=== PATIENT | male | born 1990 | race Caucasian/White ===

== ENCOUNTER 2016-10-18 17:56 | Emergency (ER) | payer OTHER ==
--- NOTE | 2016-10-18 18:01 | EDPHY ---
H & P HPI/ROS: CHIEF COMPLAINT: HISTORY OF PRESENT ILLNESS: REVIEW OF SYSTEMS: A ten point review of systems was performed and is negative with the exception of the items mentioned in the HPI. - Medical/Surgical History Hx Asthma: Yes Hx Chronic Respiratory Disease: No Hx Diabetes: No Hx Cardiac Disease: No Hx Renal Disease: No Hx Cirrhosis: No Hx Alcoholism: No Hx HIV/AIDS: No Hx Splenectomy or Spleen Trauma: No - Social History Smoking Status: Never smoked - Physical Exam Exam: General Appearance: Alert. Vital signs reviewed. * Eyes: Pupils equal and round, no conjunctival injection, no discharge. Anicteric. ENT, Mouth: Mucous membranes are moist, no oropharyngeal erythema or edema. Neck: No lymphadenopathy, supple. Respiratory: Lungs are clear to auscultation; no wheezes, rales, or rhonchi. Cardiovascular: Regular rate and rhythm; no murmur, rub, or gallop. Gastrointestinal: Abdomen is soft and nontender, no masses or organomegaly, bowel sounds normal. Skin: Warm and dry, no rashes on exposed skin, normal color. Back: Nontender to palpation over the thoracolumbar spine. No CVAT. Extremities: No lower extremity edema, no calf tenderness or swelling. Neurological: Alert and oriented. Moving all four extremities easily and equally. Cranial nerves II through XII are examined and are intact (visual acuity not tested). Strength is 5 over 5 bilaterally with testing of all major motor groups. Sensation is intact to light touch over all 4 extremities. Deep tendon reflexes are 2+ in the biceps and knees bilaterally. Gait is normal. [id number] is performed accurately. Psychiatric: Normal affect. Allergies/Adverse Reactions: No Known Allergies Allergy (Unverified 03/31/15 19:40) Home Medications: Medication Instructions Recorded Hydrocodone/Acetaminophen 1 each PO Q4-6PRN PRN #20 tablet 03/31/15 [Hydrocodon-Acetaminophen 5-325] Ibuprofen [Motrin (*)] 800 mg PO Q6-8PRN #30 tab 03/31/15 Ondansetron Odt [Zofran Odt 4 mg 4 mg PO Q4 PRN #20 tab 03/31/15 (RX)] Departure - Departure Referrals: Pamela Guadarrama NP [Primary Care Provider] - As per Instructions Physician Review and Approval Statement: 10/18/16 18:00 Portions of this note were transcribed by the medical billing coordinator. I, Dr. Mami Gibbons, personally performed the history, physical exam, and medical decision- making; and confirmed the accuracy of the information in the transcribed note.
--- NOTE | 2016-10-18 18:19 | EDPHY ---
H & P Stated Complaint: Diarrhea/ Abd cramping - Personal History Current Tetanus/Diphtheria Vaccine: Yes Current Tetanus Diphtheria and Acellular Pertussis (TDAP): Yes - Medical/Surgical History Hx Asthma: Yes Hx Chronic Respiratory Disease: No Hx Diabetes: No Hx Cardiac Disease: No Hx Renal Disease: No Hx Cirrhosis: No Hx Alcoholism: No Hx HIV/AIDS: No Hx Splenectomy or Spleen Trauma: No - Social History Smoking Status: Never smoked Time Seen by Provider: 10/18/16 18:00 HPI/ROS: CHIEF COMPLAINT: Possible malaria HISTORY OF PRESENT ILLNESS: 26-year-old immunocompetent male with no chronic abdominal pathology, return from a 1 week trip to [facility] 3 days ago. While in [facility] he was primarily in [facility] as well as remote parts of [place] [facility]. No malarial prophylaxis while there. 3 days ago he started experiencing 6 date episodes of nonbloody non purulent diarrhea, myalgias, holocephalic headache, fever, rigor, PRIMARY CARE PROVIDER: Maria M Guadarrama REVIEW OF SYSTEMS: A ten point review of systems was performed and is negative with the exception of the items mentioned in the HPI PAST MEDICAL & SURGICAL HISTORY: No pertinent medical or surgical history , no history of hepatic disease, no malaria prophylaxis SOCIAL HISTORY: nonsmoker PHYSICAL EXAM (Prior to examination, patient consented to physical exam, hands were washed and my usual and customary physical exam procedures followed) 1) GENERAL: Well-developed, well-nourished, alert and oriented. Appears to be in no acute distress. 2) HEAD: Normocephalic, atraumatic 3) HEENT: Pupils equal, round, reactive to light bilaterally. Sclera anicteric. Nasopharynx, oropharynx, clear, no lesions. No lesions. No tonsillar enlargement or exudate. No trismus no drooling. Ears bilaterally with normal tympanic membranes. 4) NECK: Full range of motion, no meningeal signs. 5) LUNGS: Clear auscultation bilaterally, no wheezes, no rhonchi, no retractions. 6) HEART: Regular rate and rhythm, no murmur, no heave, no gallop. 7) ABDOMEN: No guarding, no rebound, no focal tenderness, negative McBurney's, negative Mccormick's, negative Rovsing's, negative peritoneal sign, I am unable to elicit abdominal pain on exam 8) MUSCULOSKELETAL: Moving all extremities, no focal areas of tenderness, no obvious trauma. No peripheral edema or discoloration. 9) BACK: No CVA tenderness,. 10) SKIN: No rash, no petechiae. 11) Psychiatric: Patient is oriented X 3, there is no agitation. DIFFERENTIAL DIAGNOSIS: in no particular include but not limited influenza, viral syndrome, malaria, dengue (Erik,Rona Tasneem) Constitutional: Initial Vital Signs Temperature (C) 36.9 C 10/18/16 18:03 Heart Rate 90 10/18/16 18:03 Respiratory Rate 14 10/18/16 18:03 Blood Pressure 134/71 H 10/18/16 18:03 O2 Sat (%) 98 10/18/16 18:03 O2 Delivery Mode Room Air Allergies/Adverse Reactions: No Known Allergies Allergy (Unverified 10/18/16 18:03) Home Medications: Medication Instructions Recorded Hydrocodone/Acetaminophen 1 each PO Q4-6PRN PRN #20 tablet 03/31/15 [Hydrocodon-Acetaminophen 5-325] Ibuprofen [Motrin (*)] 800 mg PO Q6-8PRN #30 tab 03/31/15 Ondansetron Odt [Zofran Odt 4 mg 4 mg PO Q4 PRN #20 tab 03/31/15 (RX)] Medical Decision Making ED Course/Re-evaluation: 7:20 p.m.: Re-evaluation, he is smiling, appears comfortable, currently asymptomatic. Discussed case Dr. Mami Gibbons. I reviewed the patient's laboratory studies. A malaria smear has been ordered and is currently pending. 7:34 p.m.: Phone consultation with Dr. Donald Potter infectious disease. As patient currently appears well, stable vital signs, afebrile, laboratory studies generally within normal limits and a malaria smear pending, I do not think that hospitalization is currently indicated. His abdomen remained soft no guarding or rebound. I think that acute surgical abdominal pathology such as acute appendicitis, acute cholecystitis, less than likely in this patient. We have attempted to obtain stool however he has not been able to provide stool while in the ER. He was discharged with a stool collection kit. Today is Friday. He will follow up with [facility] on Friday or Friday. In the meantime, over the weekend if he develops new or worsening symptoms needs to return to the ER immediately for re-evaluation. He feels comfortable with this plan. (Rona Valencia) This patient was evaluated and managed by the physician orthotic assistant. I have reviewed the chart and agree with the plan of care. I am the secondary supervising physician. (Mami Gibbons) - Data Points Laboratory Results: Laboratory Results 10/18/16 18:26 10/18/16 18:26 Departure - Departure Disposition: Home, Routine, Self-Care Clinical Impression: Flu-like symptoms, Possible malaria, Diarrhea Condition: Good Instructions: Gastroenteritis (ED) Additional Instructions: Return to the ER if you develop new or worsening symptoms, if you develop abdominal pain, inability keep food or fluid down, or any other symptoms that concern you. Referrals: Donald Potter MD [Medical Doctor] - 10/21/16 (Dr. Donald Potter and his colleagues are infectious disease specialist.)
[2016-10-18 18:44] LABS: % IMMATURE GRANULYOCYTES 0.4 % (0.0-1.1); ABSOLUTE IMMATURE GRANULOCYTES 0.04 10^3/uL (0.00-0.10); ADD DIFF? NO; ADD MORPH? NO; ADD SCAN? NO; ATYPICAL LYMPHOCYTE FLAG 60 (0-99); FRAGMENT RBC FLAG 0 (0-99); HEMATOCRIT 42.6 % (40.0-51.0); LEFT SHIFT FLG 10 (0-99); LIPEMIA HEMOLYSIS FLAG 90 (0-99); MEAN CELL HEMOGLOBIN 31.4 pg (27.9-34.1); MEAN CELL HEMOGLOBIN CONCENTR. 35.2 g/dL (32.4-36.7); MEAN CELL VOLUME 89.1 fL (81.5-99.8); MEAN PLATELET VOLUME 10.5 fL (8.7-11.7); PLATELET CLUMPS FLAG 0 (0-99); PLATELET COUNT 174 10^3/uL (150-400); RED BLOOD CELL COUNT 4.78 10^6/uL (4.40-6.38); RED CELL DISTRIBUTION WIDTH 11.6 % (11.5-15.2)
[2016-10-18 18:54] LABS: INR 1.14 (0.83-1.16); PROTIME(PATIENT) 14.5 SEC (12.0-15.0)
[2016-10-18 18:55] LABS: APTT 26.9 SEC (23.0-38.0)
[2016-10-18 19:07] LABS: ALANINE AMINOTRANSFERASE 28 IU/L (21-72); ALBUMIN 4.1 g/dL (3.5-5.0); ALKALINE PHOSPHATASE 59 IU/L (38-126); ANION GAP 12 mEq/L (8-16); ASPARTATE AMINOTRANSFERASE 19 IU/L (17-59); BILIRUBIN,TOTAL 0.8 mg/dL (0.1-1.4); BILIRUBIN-CONJUGATED 0.2 mg/dL (0.0-0.5); BILIRUBIN-UNCONJUGATED 0.6 mg/dL (0.0-1.1); CALCIUM 8.8 mg/dL (8.5-10.4); CARBON DIOXIDE 25 mEq/l (22-31); CHLORIDE 104 mEq/L (97-110); CREATININE 0.8 mg/dL (0.7-1.3); GLOMERULAR FILTRATION RATE > 60; GLUCOSE 88 mg/dL (70-100); POTASSIUM 3.7 mEq/L (3.5-5.2); SODIUM 141 mEq/L (134-144); TOTAL PROTEIN 6.5 g/dL (6.3-8.2)
[2016-10-18 20:06] VITALS: BP 120/78; PULSE 80; RESP 16; TEMP 99; O2SAT 94
[2016-10-18 21:33] LABS: MALARIAL PREP NONE SEEN (NONE SEEN)
== END 2016-10-18 20:05 | disposition home or self-care (01) ==
DX: J11.1 Influenza due to unidentified influenza virus with other respiratory manifestations (principal); J45.909 Unspecified asthma, uncomplicated